=== PATIENT | male | born 1940 | race Caucasian/White ===

== ENCOUNTER → 2016-10-08 | Outpatient (CLI) | payer OTHER, MEDICARE ==
--- NOTE | 2016-10-10 13:01 | CR ---
EXAM DATE: 10/08/16 PATIENT'S AGE: 75 Patient: DAVID HANNON Facility: [place], [place] Site . Site : 1940 Study: XRay Knee Left [id number] 2:42:22 PM Ordering Physician: Elizabeth Artis Final Report: HISTORY: Pain. Findings: Standing AP and lateral radiographs of the left knee and sunrise view are compared with 05 October 2015. Left total knee arthroplasty is present with alignment of the femoral and tibial components. There is postoperative changes of the posterior patella. Small suprapatellar joint fluid remains. No fracture or dislocation. Skin taniya have been removed. There is a surgical clip seen along the posterior medial proximal tibia. Vascular calcification is present. Impression: Left total knee arthroplasty in anatomic alignment without fracture. Dictated by Kathy Chavez MD @ Oct 09 2016 8:29PM (Electronic Signature) Report Signed by Proxy. MEKHI
== END ==
LOC: MW.CHORTHO 07:56
PROVIDERS: ATTEND Orthopaedic Surgery
DX: M25.562 Pain in left knee (principal); Z96.652 Presence of left artificial knee joint
CPT/HCPCS: 73562-26-LT; 73562-LT